=== PATIENT | female | born 1960 | race African-American/Black ===

== ENCOUNTER 2020-10-12 18:37 | Emergency (ER) | payer MEDICAID ==
[~2020-10-12] VITALS: Ht 172.7 cm; Wt 92.5 kg
[2020-10-12] MEDS ORDERED: IPRATROPIUM BROMIDE (0.02%) 0.5MG/2.5ML NEB HHN STA (19:43)
[2020-10-12] MEDS ORDERED: ALBUTEROL (0.083%) 2.5MG/3ML NEB HHN STA ×2 (19:43→23:00)
[2020-10-12] MEDS ORDERED: METHYLPREDNISOLONE SOD SUCC 125 MG/2 ML VIAL IV STA (19:43)
[2020-10-12] MEDS ORDERED: FUROSEMIDE 40MG/4ML VIAL IV ONE (19:45)
[2020-10-12] MEDS ORDERED: ASPIRIN 81MG TABLET PO ONE (19:45)
[2020-10-12] MEDS ORDERED: NITROGLYCERIN OINT 1GM/INCH UDPKT TD ONE (19:45)
[2020-10-12 20:21] LABS: HEMATOCRIT. 48.2 % (36.0-48.0); HEMOGLOBIN. 14.8 g/dL (12.0-16.0); MEAN CORPUSCULAR HEMOGLOBIN 25.6 pg (28.0-32.0); MEAN CORPUSCULAR VOLUME 83.3 fL (81.0-99.0); MEAN PLATELET VOLUME 9.9 fl (7.4-10.4); PLATELET 131 x1000/uL (130-400); RED BLOOD CELL COUNT 5.78 mill/uL (4.2-5.4)
[2020-10-12 20:25] LABS: CHLORIDE 106 mEq/L (98-107)
[2020-10-12 20:29] LABS: INR 1.1; PARTIAL THROMBOPLASTIN TIME 26.4 sec (23.4-31.0); PROTHROMBIN TIME 11.9 sec (9.6-11.0)
[2020-10-12 21:03] LABS: PLATELET ESTIMATE NORMAL
[2020-10-12 23:13] VITALS: BP 133/89
== END 2020-10-13 00:44 | disposition designated cancer center or children's hospital (05) ==
LOC: ER 18:37 → CANBEDREQ 10-13 00:20 → ER 10-13 00:44
DX: I50.9 Heart failure, unspecified (principal); J44.1 Chronic obstructive pulmonary disease with (acute) exacerbation; R06.02 Shortness of breath; E78.00 Pure hypercholesterolemia, unspecified; F17.200 Nicotine dependence, unspecified, uncomplicated; Z20.822 Contact with and (suspected) exposure to COVID-19
CPT/HCPCS: 36415; 71045; 80053; 82962; 83880; 84484; 85025; 85610; 85730; 87426; 93005; 94644; 96374; 99285; J1940; J2930; Z7610